=== PATIENT | male | born 1965 | race African-American/Black ===

== ENCOUNTER 2021-12-13 19:21 | Emergency (ER) | payer BC, OTHER, SELFPAY ==
--- NOTE | ~2021-12-13 | XR_ITS ---
EXAM: XR knee RT min 4V DATE: 12/13/2021 20:13 HISTORY: right knee pain . COMPARISON: 02/11/2008. FINDINGS: Normal mineralization. No fracture or dislocation. No lytic or blastic lesion. Mild tricom partmental osteoarthritis. No erosion or periosteal change. Soft tissues within normal limits. IMPRESSION: No acute osseous finding in the right knee. Reviewed, dictated and finalized at location K.
[2021-12-13 19:25] VITALS: BP 136/72; PULSE 108; RESP 16; TEMP 36.3; O2SAT 100
--- NOTE | 2021-12-13 19:59 | ED.EXTPRO ---
HPI - Extremity Problem General Chief complaint: Extremity Problem,Nontraumatic <Solange Arredondo PA-C - Last Filed: 12/13/21 21:20> Stated complaint: pain in right calf <JULIA Coronado Last Filed: 12/13/21 21:20> Time Seen by Provider: 12/13/21 19:41 <Solange Arredondo PA-C - Last Filed: 12/13/21 21:20> Source: patient <JULIA Coronado Last Filed: 12/13/21 21:20> Mode of arrival: ambulatory <JULIA Coronado Last Filed: 12/13/21 21:20> Limitations: no limitations <Solange Arredondo PA-C - Last Filed: 12/13/21 21:20> History of Present Illness HPI Narrative: This is a 56-year-old male that presents to the emergency department for right knee pain ongoing over the last 5 days. No recent injury or trauma. Reports the pain initially was on the anterior part of his knee. Now the pain is started to become in the back of the knee and radiate into his calf and upper leg. He was speaking to one of his friends who is a nurse practitioner who told him he should be evaluated to rule out DVT. Does report recent travel. Denies fever, erythema, edema, or recent surgery. <Solange Arredondo PA-C - Last Filed: 12/13/21 21:20> Related Data Allergies/Adverse reactions: Allergies Allergy/AdvReac Type Severity Reaction Status Date / Time No Known Allergies Allergy Verified 12/13/21 19:30 <JULIA Coronado Last Filed: 12/13/21 21:20> Review of Systems Review of Systems: CONSTITUTIONAL: Denies fever MUSCULOSKELETAL: Reports joint pain, and myalgia. NEUROLOGIC: Denies numbness <JULIA Coronado Last Filed: 12/13/21 21:20> All systems reviewed & are unremarkable except as noted in HPI and below <JULIA Coronado Last Filed: 12/13/21 21:20> [facility] Past Medical History Medical History: Medical History (Updated 12/14/21 @ 00:00 by Marci Kapoor) No active medical problems <Solange Arredondo PA-C - Last Filed: 12/13/21 21:20> Surgical History Surgical History: Surgical History (Updated 12/13/21 @ 20:00 by Solange Arredondo PA-C) No pertinent past surgical history <Solange Arredondo PA-C - Last Filed: 12/13/21 21:20> Social History Social History: Social History (Updated 12/13/21 @ 20:00 by Solange Arredondo PA-C) Smoking status: Never smoker <Solange Arredondo PA-C - Last Filed: 12/13/21 21:20> Exam Narrative: GENERAL: Well-appearing, well-nourished, and in no acute distress. HEAD: Normocephalic, atraumatic. EYES: EOMI. CHEST: No respiratory distress. HEART: Regular rate EXTREMITIES: Normal range of motion. No edema, erythema or warmth. Normal DP pulse. Normal sensation SKIN: Warm, dry, no rash. NEURO: No focal deficits. Alert and oriented x3. PSYCH: Normal mood and affect <Solange Arredondo PA-C - Last Filed: 12/13/21 21:20> Course POWER SCREWDRIVER OPERATOR/PA Physician Supervision For this patient encounter, I reviewed the POWER SCREWDRIVER OPERATOR or PA documentation, treatment plan, and medical decision making <Orlando Goodwin MD - Last Filed: 12/25/21 19:15> Vital Signs Vital signs: Vital Signs Temperature 97.3 F L 12/13/21 19:25 Pulse Rate 108 H 12/13/21 19:25 Respiratory Rate 16 12/13/21 19:25 Blood Pressure 136/72 12/13/21 19:25 Pulse Oximetry 100 12/13/21 19:25 Oxygen Delivery Room Air 12/13/21 19:25 Temperature 97.3 F L 12/13/21 19:25 Pulse Rate 88 12/13/21 21:17 Respiratory Rate 16 12/13/21 21:17 Blood Pressure 114/69 12/13/21 21:17 Pulse Oximetry 98 12/13/21 21:17 Oxygen Delivery Room Air 12/13/21 19:25 <Solange Arredondo PA-C - Last Filed: 12/13/21 21:20> Vital Signs Temperature 97.3 F L 12/13/21 19:25 Pulse Rate 108 H 12/13/21 19:25 Respiratory Rate 16 12/13/21 19:25 Blood Pressure 136/72 12/13/21 19:25 Pulse Oximetry 100 12/13/21 19:25 Oxygen Delivery Room Air 12/13/21 19:25 Temperature 97.3 F L 12/13/21 19:25 Pulse Rate 88 12/13/21 21:17 Re
[2021-12-13 20:33] LABS: Basophils Percent Auto 0.4 % (0.2-1.2); Eosinophils Absolute Auto 0.1 K/mm3 (0-0.3); Eosinophils Percent Auto 1.9 % (0-4.4); Hematocrit 46.2 % (42.0-52.0); Hemoglobin 14.7 g/dL (14.0-18.0); Immature Granulocyte Absolute 0.01 K/mm3 (0.00-0.031); Immature Granulocyte Percent A 0.2 % (0-0.5); Immature Platelet Fraction Pct 8.5 % (0.9-11.2); Lymphocytes Absolute Auto 1.51 K/mm3 (0.9-3.2); Lymphocytes Percent Auto 31.1 % (18.3-44.2); Mean Corpuscular HGB Conc 31.8 g/dl (32-36); Mean Corpuscular Hemoglobin 29.2 pg (26-34); Mean Corpuscular Volume 91.7 fl (80-100); Mean Platelet Volume 11.4 fl (7.4-10.4); Monocytes Absolute Auto 0.4 K/mm3 (0.1-0.6); Monocytes Percent Auto 7.8 % (2.6-8.5); Neutrophils Absolute Auto 2.8 K/mm3 (1.3-6.7); Neutrophils Percent Auto 58.6 % (45.5-73.1); Platelet Count Result 117 k/mm3 (150-375); Red Blood Count 5.04 M/mm3 (4.6-6.20); White Blood Count 4.9 K/mm3 (4.5-10.0)
[2021-12-13 20:40] LABS: INR 1.1; Prothrombin Time 13.9 Seconds (11.1-14.7)
[2021-12-13 20:41] LABS: Partial Thromboplastin Time 28.7 SECONDS (22.3-36.8)
[2021-12-13 20:43] LABS: Anion Gap 11 mmol/L (8-16); Blood Urea Nitrogen 13 mg/dL (9-20); CRP 0.6 mg/dL (<1.0); Calcium 9.6 mg/dL (8.4-10.2); Carbon Dioxide 27 mmol/L (22-30); Chloride 105 mmol/L (98-107); Estimated CRCL calculation 65 ml/min; Estimated Glomerular Filt Rate > 60; Glucose 113 mg/dL (65-110); Potassium 3.7 mmol/L (3.4-5.0); Sodium 143 mmol/L (137-145)
[2021-12-13 20:51] LABS: D Dimer 15.88 ug/mL (<0.48)
[2021-12-13 21:17] VITALS: BP 114/69; PULSE 88; RESP 16; O2SAT 98
[2021-12-13] MEDS: ENOXAPARIN 100 MG/ML SYRINGE 95 MG SUB-Q (21:17)
== END 2021-12-13 21:36 | disposition home or self-care (01) ==
PROVIDERS: Physician Assistant; Emergency Provider Emergency Medicine; PCP Internal Medicine Geriatric Medicine
DX: M79.661 Pain in right lower leg (principal)
CPT/HCPCS: 36415; 73564; 80048; 85025; 85055; 85380; 85610; 85730; 86140; 96372; 99283; J1650

== ENCOUNTER 2021-12-14 07:17 | Outpatient (CLI) | payer BC, OTHER, SELFPAY ==
--- NOTE | ~2021-12-14 | US_ITS ---
EXAMINATION: US venous doppler LE RT DATE: 12/14/2021 07:55 INDICATION: Right lower limb pain. Elevated d-dimer. TECHNIQUE: Grayscale ultrasound images without and with compression and Doppler ultrasound images of the right lower extremity veins were obtained. COMPARISON: None. FINDINGS: Noncompressible deep venous thrombosis in the distal right superficial femoral vein, popliteal vein a nd gastrocnemius vein which appear occlusive with no discernible flow on color Doppler. The visualize d portions of right common femoral vein, profunda (deep) femoral vein, proximal to mid femoral vein, peroneal trunk, posterior tibial veins, peroneal veins and greater saphenous vein outflow are patent . IMPRESSION: 1. No deep venous thrombosis in the right distal femoral vein extending through the popliteal vein a nd into the gastrocnemius vein. Dr. Yanez discussed these findings with Dr. Dr. Saez at 7:58 AM. Reviewed, dictated and finalized at location A. IMPRESSION: 1. No deep venous thrombosis in the right distal femoral vein extending throug h the popliteal vein and into the gastrocnemius vein. Dr. Yanez discussed th joel findings with Dr. Dr. Saez at 7:58 AM.
== END 2021-12-14 07:18 | disposition home or self-care (01) ==
PROVIDERS: PCP Internal Medicine Geriatric Medicine; Visit Provider Internal Medicine Geriatric Medicine
DX: R79.89 Other specified abnormal findings of blood chemistry (principal)
CPT/HCPCS: 93971